=== PATIENT | male | born 1945 | race Caucasian/White ===

== ENCOUNTER → 2017-12-28 10:07 | Outpatient (CLI) | payer OTHER, SELFPAY | PROVIDERS: PCP Internal Medicine; Visit Provider Urology | DX: R97.20 Elevated prostate specific antigen [PSA] (principal) | CPT/HCPCS: 36415; 84153 ==

== ENCOUNTER → 2018-07-04 13:11 | Outpatient (CLI) | payer OTHER, SELFPAY ==
[2018-07-04 14:51] LABS: Prostate Specific Antigen 3.11 ng/mL (0.10-4.00)
== END ==
PROVIDERS: Family Provider Internal Medicine; PCP Internal Medicine; Visit Provider Urology
DX: R97.20 Elevated prostate specific antigen [PSA] (principal)
CPT/HCPCS: 36415; 84153

== ENCOUNTER → 2018-09-20 11:23 | Outpatient (CLI) | payer OTHER, SELFPAY ==
--- NOTE | 2018-09-20 | DI.MRI.S_ITS ---
PROCEDURE: MR BRAIN (IAC) WWO CON INDICATIONS: Benign paroxysmal vertigo, unspecified ear TECHNIQUE: Noncontrast sagittal T1 spin echo, axial FLAIR, axial gradient echo, axial diffusion and ADC through the brain. Axial thin-slice 3D CISS, coronal TruFISP, axial T1 spin echo with fat saturation through the internal auditory canals. After the administration of contrast, thin slice axial and coronal T1 spin echo with fat saturation through the internal auditory canals, and axial T1 spin echo with fat saturation through the brain. COMPARISON: None. FINDINGS: Image quality: Excellent. Cerebellopontine angles: No cerebellopontine angle masses. Inner ear structures appear normally formed. No suspicious enhancement in the internal auditory canal or along the course of the 7th cranial nerve. CSF spaces: Ventricles are normal in size and shape. There is mild, diffuse cerebral volume loss. There are mild periventricular and subcortical white matter chronic microvascular ischemic changes. No extra-axial fluid collections. Basal cisterns are patent. Brain: No intracranial bleeds or mass effects. Mccracken-white matter interface is intact. No abnormal intracranial enhancement. Diffusion weighted images demonstrate no acute ischemic insults. Brainstem appears normal. Normal intravascular flow voids are present. Skull and face: Calvarial marrow signal is normal. Orbits appear normal. Sinuses: Sinuses and mastoids are clear. IMPRESSION: 1. No acute intracranial disease process. 2. No evidence of vestibular schwannoma. 3. No abnormal intracranial mass or suspicious postcontrast enhancement. 4. Mild, diffuse cerebral volume loss. 5. Mild periventricular and subcortical white matter chronic microvascular ischemic changes. Dictated by: Lauren Cedillo MD, PhD on 09/20/2018 at 13:47 Approved by: Lauren Cedillo MD, PhD on 09/20/2018 at 13:49
== END ==
PROVIDERS: Family Provider Internal Medicine; PCP Internal Medicine; Visit Provider Internal Medicine
DX: H81.10 Benign paroxysmal vertigo, unspecified ear (principal)
CPT/HCPCS: 70553

== ENCOUNTER → 2018-12-28 10:06 | Outpatient (CLI) | payer OTHER, SELFPAY ==
[2018-12-28 11:42] LABS: Prostate Specific Antigen 3.42 ng/mL (0.10-4.00)
== END ==
PROVIDERS: Family Provider Internal Medicine; PCP Internal Medicine; Visit Provider Urology
DX: R97.20 Elevated prostate specific antigen [PSA] (principal)
CPT/HCPCS: 36415; 84153

== ENCOUNTER → 2020-01-26 10:37 | Outpatient (CLI) | payer OTHER, SELFPAY ==
[2020-01-26 13:26] LABS: Prostate Specific Antigen 4.62 ng/mL (0.10-4.00)
== END ==
PROVIDERS: Family Provider Internal Medicine; PCP Internal Medicine; Referring Provider Urology; Visit Provider Urology
DX: R97.20 Elevated prostate specific antigen [PSA] (principal)
CPT/HCPCS: 36415; 84153

== ENCOUNTER → 2021-02-19 11:02 | Outpatient (CLI) | payer OTHER, SELFPAY ==
[2021-02-20 09:40] LABS: PSA Free % 26.2 % (.); PSA, Total 5.3 ng/mL (0.0-4.0)
== END ==
PROVIDERS: Family Provider Internal Medicine; PCP Internal Medicine; Referring Provider Urology; Visit Provider Urology
DX: C61 Malignant neoplasm of prostate (principal)
CPT/HCPCS: 36415; 84153; 84154

== ENCOUNTER → 2022-03-18 10:11 | Outpatient (CLI) | payer OTHER, SELFPAY ==
--- NOTE | 2022-03-18 20:39 | DI.NM.S_ITS ---
DATE OF SERVICE: 03/18/2022 PROCEDURE: Exercise perfusion study. INDICATION: Chest pain with underlying hypertension. RADIOPHARMACEUTICAL: 24.6 millicurie technetium-99m Myoview IV was injected at stress and 12.7 millicurie technetium-99m Myoview IV was injected at rest. CARDIAC STRESS: The patient underwent exercise perfusion study under the supervision of an attending staff. The patient walked on Maged protocol for 7 minutes and achieved 103 percent of target heart rate. Resting blood pressure 122/84 mmHg. Peak blood pressure 200/90 mmHg. Baseline rhythm was sinus with nonspecific ST-T changes with ST flattening in inferolateral leads. During stress, no new convincing ischemic changes seen. The patient has some nonspecific ST-T changes in recovery. There were occasional PVCs. No complex arrhythmia. No chest pain. Had some shortness of breath. Achieved 10.1 METs of workload. CHRIS -21 percent. RAW DATA: There is increased subdiaphragmatic activity. GATED STUDY: Stress LV ejection fraction 68 percent without any obvious wall motion abnormalities. Resting end-diastolic volume 90 mL. TID ratio 0.91, which is within normal limits. Lung/heart ratio 0.25, which is within normal limits. MYOCARDIAL PERFUSION SCAN: Stress supine, resting supine and stress prone images were compared to each other. Stress supine and resting supine images revealed large size, moderately decreased perfusion of inferior wall extending into the inferoapex, as well as inferoseptum, which got completely resolved during stress prone images, suggestive of tissue attenuation artifact. No convincing ischemia or infarction pattern. CONCLUSION: This is a normal myocardial perfusion study with evidence of diaphragmatic tissue attenuation artifact, which got resolved during stress prone images. Good exercise tolerance. Peak exercise blood pressure 200/90. No chest pain. No complex arrhythmias. Preserved left ventricular function. Overall, low-risk myocardial perfusion scan. Attila Neil - Wong/tayler doc#: [id number]/job#: [id number] dd: 03/18/2022 17:10:00 dt: 03/18/2022 20:26:00 DICTATING MD/COPIES TO: Don Lawson MD COPIES MNE: ELI;
== END ==
PROVIDERS: Family Provider Internal Medicine; PCP Internal Medicine; Referring Provider Internal Medicine; Visit Provider Internal Medicine
DX: R07.9 Chest pain, unspecified (principal); I10 Essential (primary) hypertension
CPT/HCPCS: 78452; 93017; A9502

== ENCOUNTER → 2022-05-30 15:45 | Outpatient (CLI) | payer OTHER, SELFPAY ==
--- NOTE | 2022-05-30 15:47 | DI.MRI.S_ITS ---
PROCEDURE: MR HEAD/BRAIN WO CON INDICATIONS: Syncope and collapse TECHNIQUE: Non-contrast axial T1 spin echo, axial T2 fast spin echo, sagittal and axial FLAIR, coronal T2 fast spin echo, axial gradient echo, axial diffusion and ADC through the brain. COMPARISON: None. FINDINGS: Mild global cerebral volume loss with passive expansion of the ventricular system extra-axial spaces. No definite regional or lobar predilection to the volume loss. Vjsg-cu-iibigync chronic microvascular ischemic changes manifesting as numerous foci of increased T2/FLAIR signal intensity in the subcortical and periventricular white matter both cerebral hemispheres. No restricted diffusion. No unexpected intracranial susceptibility. No mass effect or midline shift. Orbital structures normal. Paranasal sinuses and mastoid air cells predominantly clear. IMPRESSION: No acute finding. Mild global cerebral volume loss and niww-al-hjounlta chronic microvascular ischemic changes. Dictated by: Rfaiq Torres M.D. on 05/30/2022 at 21:37 Approved by: Rafiq Torres M.D. on 05/30/2022 at 21:38
== END ==
PROVIDERS: Family Provider Internal Medicine; PCP Internal Medicine; Referring Provider Internal Medicine; Visit Provider Internal Medicine
DX: R55 Syncope and collapse (principal)
CPT/HCPCS: 70551

== ENCOUNTER 2023-03-29 12:19 | Day surgery (SDC) | payer OTHER, SELFPAY ==
[2023-03-29] MEDS: LACTATED RINGERS 1,000 ML 42 ML IV (12:43)
[2023-03-29 12:52] VITALS: BP 142/65; PULSE 62; RESP 18; TEMP 36.8; O2SAT 99; BMI 26.6
--- NOTE | 2023-03-29 13:34 | PM.HP.1 ---
History of Present Illness History of Present Illness Date Patient Seen: 03/29/23 Time Patient Seen: 13:34 Chief complaint: Colonoscopy w/poss bx Narrative: 77-year-old male with a reported history of unknown histology colon polyps. He believes his last colonoscopy was more than 10 years ago. Colonoscopy is pursued today. [facility] Social History household members: spouse Smoking Status: Never smoker alcohol intake: never Meds Home Medications and Allergies Home Medications Medication Instructions Recorded Confirmed Type Fluticasone Propionate (FLONASE) 2 spray intranasal HS #1 inh 05/04/12 03/29/23 Rx atorvastatin 10 mg tablet 10 mg PO DAILY 03/29/23 03/29/23 History tamsulosin 0.4 mg capsule 0.8 mg PO DAILY 03/29/23 03/29/23 History valsartan 160 mg tablet 160 mg PO DAILY 03/29/23 03/29/23 History Allergies Allergy/AdvReac Type Severity Reaction Status Date / Time No Known Drug Allergies Allergy Unknown Verified 03/29/23 12:49 aspirin AdvReac Mild GI UPSET Verified 03/29/23 12:49 Review of Systems Review of Systems ROS: Yes All systems reviewed with the patient and are negative except as otherwise documented Exam Vital Signs (past 8 hours): - 03/29/23 12:52 Temperature 98.2 F Pulse Rate 62 Respiratory Rate 18 Blood Pressure 142/65 H Pulse Oximetry 99 Oxygen Delivery Method Room Air Oxygen Delivery Method Room Air Const General: cooperative HENMT Head: normal to inspection Eyes General: appearance normal, both eyes and all related structures Neck Neck: normal visual inspection Chest Chest: normal inspection of the chest Resp Effort & Inspection: normal respiratory effort Cardio Rate: regular rate GI Inspection: normal to inspection Skin General: no rashes or lesions noted Neuro General: patient alert and patient awake Extrem General: normal to inspection and no pedal edema Psych Appearance: grossly normal Assessment & Plan Assessment & Plan narrative: 77-year-old male with a personal history of unknown histology colon polyps. Colonoscopy for screening purposes is pursued today.
--- NOTE | 2023-03-29 13:35 | PM.PREOP ---
Pre-operative Note Interval Note History & Physical reviewed/Exam performed by Physician: Yes Changes to H&P: No ASA Class (for procedural sedation): II
--- NOTE | 2023-03-29 14:34 | PM.OP.COLON ---
Operative Date/Time/Diagnoses Date of procedure: 03/29/23 Time of procedure: 14:34 Pre-op diagnosis: Personal history of unknown histology colon polyps. He reports for screening purposes. Post-op diagnosis: same Procedure & Clinicians Study performed: Colonoscopy Same procedure as scheduled: Yes Indications: Personal history of unknown histology colon polyps. He reports for screening purposes. Surgeon: Wyatt Galindo Procedure Notes SCOAP/Timeout: Done Procedure in detail: After the risks and benefits were explained, written and verbal informed consent was obtained. The patient was brought into the procedure room and placed into the left lateral decubitus position. Please see anesthesia note for sedation details. Digital rectal examination was accomplished. The scope was introduced into the patient and advanced under direct visualization to the cecum as identified by the appendiceal orifice and ileocecal valve. The scope was slowly withdrawn to carefully examine the mucosa for any defects or lesions. Comprehensive imaging was accomplished throughout the rectum including the dentate line. The colon was decompressed, the scope was then removed from the patient who tolerated the procedure well. Pediatric colonoscope Bowel prep adequate Scope withdrawal time: 10 minutes Sedation minutes: 20 Specimen(s): none sent Complications: none Impression: There were some scant diverticula in the left colon. The colon was mildly tortuous. No significant mucosal pathology was appreciated throughout. Prostate felt generous on digital rectal exam. Endoscopic diagnosis 1. Mild diverticulosis 2. Mildly tortuous colon 3. Enlarged prostate Post-procedure Plan for aftercare: 1. Await histology. 2. Follow up on prostate health in primary care. Disposition: PACU
[2023-03-29 14:35] VITALS: BP 112/63; PULSE 65; RESP 13; TEMP 36.9; O2SAT 99
[2023-03-29 14:40] VITALS: BP 114/63; PULSE 61; RESP 14; O2SAT 98
[2023-03-29 14:44] VITALS: BP 116/69; PULSE 59; RESP 14; TEMP 37; O2SAT 98
== END 2023-03-29 14:59 | disposition home or self-care (01) ==
PROVIDERS: Family Provider Internal Medicine; PCP Internal Medicine; Referring Provider Internal Medicine Gastroenterology; Visit Provider Internal Medicine Gastroenterology
PROC: 0DJD8ZZ Inspection of Lower Intestinal Tract, Via Natural or Artificial Opening Endoscopic (ICD-10-PCS; CPT 45378; principal; 2023-03-29 13:30)
DX: Z12.11 Encounter for screening for malignant neoplasm of colon (principal); Z86.010 Personal history of colon polyps; K57.30 Diverticulosis of large intestine without perforation or abscess without bleeding; N40.0 Benign prostatic hyperplasia without lower urinary tract symptoms
CPT/HCPCS: G0105; J2704

== ENCOUNTER → 2023-06-03 15:13 | Outpatient (CLI) | payer OTHER, SELFPAY ==
--- NOTE | 2023-06-03 | DI.RAD.S_ITS ---
PROCEDURE: XR LUMBAR SPINE 2-3V INDICATIONS: LOW BACK PAIN TECHNIQUE: 3 views of the lumbar spine were acquired. COMPARISON: None. FINDINGS: Bones: 5 ath-sjg-cnqzsym vertebrae are present. Minimal levocurvature of the lower lumbar spine. There is multilevel facet arthropathy, worse at L4-5 and L5-S1. Mild multilevel disc height loss with degenerative endplate changes and spurring is present. This is most pronounced at L4-5. No vertebral body compression fractures. No suspicious bony lesions. Soft tissues: Overlying bowel gas pattern is normal. No suspicious soft tissue calcifications. IMPRESSION: Multilevel degenerative changes of the lumbar spine, most pronounced at L4-5. Dictated by: Karri Winter M.D. on 06/03/2023 at 16:34 Approved by: Karri Winter M.D. on 06/03/2023 at 16:34
== END ==
PROVIDERS: Family Provider Internal Medicine; PCP Internal Medicine; Referring Provider Internal Medicine; Visit Provider Internal Medicine
DX: M47.816 Spondylosis without myelopathy or radiculopathy, lumbar region (principal); M47.817 Spondylosis without myelopathy or radiculopathy, lumbosacral region; M54.50 Low back pain, unspecified; G89.29 Other chronic pain
CPT/HCPCS: 72100

== ENCOUNTER 2025-03-20 10:45 | Outpatient (RCR) | payer MEDICARE, SELFPAY ==
--- NOTE | 2024-12-28 12:02 | PT.OPPOC ---
Physical, Occupational & Speech Therapy At [facility] Current Diagnoses Lumbago with sciatica, right side (12/28/24) Visit Care Team Role Provider Type Slim Koehler MD Primary Care Provider Physician Specialty: Internal Medicine Address: [address] [place] [address], [id number] Email: Jean Mccormack MD Family Provider Physician Specialty: Internal Medicine Address: [address] [place] [address], [id number] Email: [email or web address] AG Vicki Hassan MD Attending Provider Physician Referring Provider Specialty: Internal Medicine Address: [place], [address] Email: Plan Of Care PT OP: Lower Back/Lower Extremity Start: 12/28/24 11:32 Freq: Status: Active Protocol: Document 12/28/24 10:45 DCW (Rec: 12/28/24 12:02 DCW [id number]) Out-Patient Physical Therapy Visit Information Visit Information Visit Type Initial Evaluation Visit Start Time 10:45 Visit Stop Time 11:25 Visit Number 1 Number of SMASH PIECER Visits 0 Progress Note Due 01/27/25 Evaluation Information Evaluation Date 12/28/24 Current Condition History of Current Condition Onset Date Multi-year history Current Complaints Low back, right posterior hip pain History of Current Pt is an 79 year old male presenting with a long- Condition standing history of low back pain, pt estimates that it has been ongoing for approximately 25 years. Notes that it comes and goes, has recently been okay, but then beginning two years ago, has begun to worsen. Reports pain is present across his low back and into his right hip, but denies further radiating symptoms. Notes some mild ache when first getting up in the morning, but this loosens up, but as he moves around throughout the day, it does tend to worsen. Lifting things or bending over to work on tasks increase pain, NSAIDs or rest seem to help a bit. Prior Treatments and Lumbar X-ray: IMPRESSION: Multilevel degenerative Tests changes of the lumbar spine, most pronounced at L4-5. per Karri Winter M.D. on 06/03/2023 OP-PT Subjective Patient Comments Patient Comments It started 25 years ago, I was doing a lot of heavy work at that time, and it's flared up off and on since then. Patient Reported Worse Progress Patient Questionnaires Oswestry Low Back Index Oswestry Score 13/50 = 26% Manual Assessments Soft Tissue Assessment Soft Tissue Mobility Increased tone B lumbar paraspinals, piriformis Assessment Joint Mobility Assessment Joint Mobility Hypomobility of lumbar spine with P->A joint mobs Assessment Lumbar Spine Range of Motion Lumbar Spine Active Degrees Testing Position Standing Flexion 10 Extension 10 Lateral Flexion Left 54 Lateral Flexion 50 Right ROM Limitations Soft Tissue Tightness,Bony Restriction,Muscle Tone,Pain Comments Lateral flexion measured in cm from fingertips to floor Special Tests Lumbar Spine Special Tests BAO Test Results Negative Compression Test Results Negative Straight Leg Raise Test Results Negative Slump Test Results Negative A-P Shearing Test Results Negative Hip Strength Hip Manual Muscle Testing Right Flexion (L2) 4 Good Abduction 4- Good- Adduction 4- Good- External Rotation 4+ Good+ Internal Rotation 4+ Good+ Left Flexion (L2) 4- Good- Abduction 4- Good- Adduction 4- Good- External Rotation 4+ Good+ Internal Rotation 4+ Good+ Knee Strength Knee Manual Muscle Testing Right Flexion (S2) 4+ Good+ Extension (L3) 4 Good Left Flexion (S2) 4+ Good+ Extension (L3) 4 Good Therapeutic Exercises Sitting Exercises Piriformis Sitting Exercise Piriformis stretch - seated Figure-4 Name Physical Therapy Assessment Rehab Potential Rehabilitation Good Potential Evaluation Complexity Number of Personal 3 or More Factors/ Comorbidities Number of Body 4 or More Systems Impaired Clinical Evolving Presentation at Evaluation Impairments Impairments Activity Tolerance,Functional Activities,Functional Mobility,Pain,ROM,Soft Tissue Mobility,Strength,Tone Goals Two Impairment Pt displays limited lumbar AROM, flexion 40?, extension 10? Alf Goal (LTG) Pt to demonstrate improvement in lumbar flexion to >60? 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 Pt exhibits limited lumbar ROM, hypomobility, and increased muscle tone suggestive of osteoarthritis and degenerative changes. Will likely benefit from skilled therapy focusing on hip/core strengthening, lumbar mobility, tone management, and pain control techniques. At today's evaluation, pt did not appear to exhibit any red flags or concerning signs of neuro involvement. No positive special testing. Physical Therapy Plan Frequency and Duration Frequency of 2x/Week Treatment Plan of Care Start 12/28/24 Date Plan of Care End 03/28/25 Date Therapeutic Interventions Therapeutic Home Exercise Program,Joint Mobilizations,Manual Interventions Therapy,Neuromuscular Re-education,Patient/Caregiver Education,Self-Care/Home Management,Soft Tissue Mobilization,Therapeutic Activities,Therapeutic Exercises Modalities Cold Pack/Ice Massage,Electric Stimulation,Hot Packs, Ultrasound Next Visit Focus/Plan Next Note Type Treatment Note Next Visit Plan Hip/core strengthening, STM, lumbar joint mobs Plan of Care Dates Plan of Care Start Date 12/28/24 Plan of Care End Date 03/28/25 Electronically Signed by: Salvador Cage, PT 12/28/24 0672 If you are in agreement with this Plan of Care, please return a signed and dated copy. I have reviewed this Plan of Care and certify that the skilled therapy services above are required to meet the patient?s needs. Physician Signature Date Printed Name and Credentials Clinical Instructor Signature Printed Name and Credentials
--- NOTE | 2025-02-19 12:15 | PT.OPPN ---
Current Diagnoses Lumbago with sciatica, right side (02/22/25) Physical Therapy Progress Note PT OP: Lower Back/Lower Extremity Start: 12/28/24 11:32 Freq: Status: Active Protocol: Document 03/01/25 11:08 DCW (Rec: 02/19/25 12:18 DCW [id number]) Out-Patient Physical Therapy Visit Information Visit Information Visit Type Progress Note Visit Start Time 11:30 Visit Stop Time 12:15 Visit Number 2 Number of DEPORTATION OFFICER Visits 0 Progress Note Due 03/21/25 Evaluation Information Evaluation Date 12/28/24 OP-PT Subjective Patient Comments Patient Comments My back is chronic, constant, typically okay throughout the day, gets worse as it gets later in the day and I start to get tired. It's also right here in my R hip, but then just vague ache in my low back. Therapeutic Exercises Supine Exercises Air Bike Supine Exercise Name PPT /c Air Bicycle Comments HEP SLR Supine Exercise Name PPT /c PPT Comments HEP Marching Supine Exercise Name PPT /c Marching Comments HEP PPT /c TrA Supine Exercise Name PPT /c TrA Comments HEP Sitting Exercises Piriformis Sitting Exercise Piriformis stretch - seated Figure-4 Name Comments HEP Standing Exercises Pallof Press Standing Exercise Pallof Press Name Side bilateral Resistance Blue Comments HEP Other Exercises Resisted Ambulation Other Exercise Name Resisted side-stepping Resistance Green loop Manual Therapy Treatment Soft Tissue Mobilization Lumbar Body Location L lumbar paraspinals, piriformis, iliac crest Mobilization Type Strumming,Sustained Pressure,Trigger Point Release Intensity/Depth Moderate Body Position Sidelying Physical Therapy Assessment Impairments Impairments Activity Tolerance,Functional Activities,Functional Mobility,Pain,ROM,Soft Tissue Mobility,Strength,Tone Goals Two Impairment Pt displays limited lumbar AROM, flexion 40?, extension 10? Care Home Goal (LTG) Pt to demonstrate improvement in lumbar flexion to >60? 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 Feels good with his current HEP, has been fairly compliant. Noted some hip fatigue with resisted ambulation. Next visit, review HEP, continue STM, trial lumbar mobs if necessary. Physical Therapy Plan Frequency and Duration Frequency of 2x/Week Treatment Plan of Care Start 12/28/24 Date Plan of Care End 03/28/25 Date Therapeutic Interventions Therapeutic Home Exercise Program,Joint Mobilizations,Manual Interventions Therapy,Neuromuscular Re-education,Patient/Caregiver Education,Self-Care/Home Management,Soft Tissue Mobilization,Therapeutic Activities,Therapeutic Exercises Modalities Cold Pack/Ice Massage,Electric Stimulation,Hot Packs, Ultrasound Next Visit Focus/Plan Next Note Type Treatment Note Next Visit Plan Hip/core strengthening, STM, lumbar joint mobs
--- NOTE | 2025-02-19 12:18 | PT.OTN ---
Current Diagnoses Lumbago with sciatica, right side (02/19/25) Physical Therapy Treatment Note PT OP: Lower Back/Lower Extremity Start: 12/28/24 11:32 Freq: Status: Active Protocol: Document 02/19/25 11:30 DCW (Rec: 02/19/25 12:18 DCW [id number]) Out-Patient Physical Therapy Visit Information Visit Information Visit Type Progress Note Visit Start Time 11:30 Visit Stop Time 12:15 Visit Number 2 Number of CLINICAL LABORATORY AIDE Visits 0 Progress Note Due 01/27/25 Evaluation Information Evaluation Date 12/28/24 OP-PT Subjective Patient Comments Patient Comments My back is chronic, constant, typically okay throughout the day, gets worse as it gets later in the day and I start to get tired. It's also right here in my R hip, but then just vague ache in my low back. Therapeutic Exercises Supine Exercises Air Bike Supine Exercise Name PPT /c Air Bicycle Comments HEP SLR Supine Exercise Name PPT /c PPT Comments HEP Marching Supine Exercise Name PPT /c Marching Comments HEP PPT /c TrA Supine Exercise Name PPT /c TrA Comments HEP Sitting Exercises Piriformis Sitting Exercise Piriformis stretch - seated Figure-4 Name Comments HEP Standing Exercises Pallof Press Standing Exercise Pallof Press Name Side bilateral Resistance Blue Comments HEP Other Exercises Resisted Ambulation Other Exercise Name Resisted side-stepping Resistance Green loop Manual Therapy Treatment Soft Tissue Mobilization Lumbar Body Location L lumbar paraspinals, piriformis, iliac crest Mobilization Type Strumming,Sustained Pressure,Trigger Point Release Intensity/Depth Moderate Body Position Sidelying Physical Therapy Assessment Impairments Impairments Activity Tolerance,Functional Activities,Functional Mobility,Pain,ROM,Soft Tissue Mobility,Strength,Tone Goals Two Impairment Pt displays limited lumbar AROM, flexion 40?, extension 10? Long-Term Goal (LTG) Pt to demonstrate improvement in lumbar flexion to >60? 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 Noted some hip fatigue with resisted ambulation. Next visit, review HEP, continue STM, trial lumbar mobs if necessary. Physical Therapy Plan Frequency and Duration Frequency of 2x/Week Treatment Plan of Care Start 12/28/24 Plan of Care End 03/28/25 Date Therapeutic Interventions Therapeutic Home Exercise Program,Joint Mobilizations,Manual Interventions Therapy,Neuromuscular Re-education,Patient/Caregiver Education,Self-Care/Home Management,Soft Tissue Mobilization,Therapeutic Activities,Therapeutic Exercises Modalities Cold Pack/Ice Massage,Electric Stimulation,Hot Packs, Ultrasound Next Visit Focus/Plan Next Note Type Treatment Note Next Visit Plan Hip/core strengthening, STM, lumbar joint mobs
--- NOTE | 2025-02-22 13:50 | PT.OTN ---
Current Diagnoses Lumbago with sciatica, right side (02/22/25) Physical Therapy Treatment Note PT OP: Lower Back/Lower Extremity Start: 12/28/24 11:32 Freq: Status: Active Protocol: Document 02/22/25 13:00 SP (Rec: 02/22/25 13:50 SP [id number]) Out-Patient Physical Therapy Visit Information Visit Information Visit Type Treatment Note Visit Start Time 13:00 Visit Stop Time 13:50 Visit Number 3 Number of BLOCK OUT MACHINE OPERATOR Visits 1 Progress Note Due 01/27/25 OP-PT Subjective Patient Comments Patient Comments Pt reports was sore after last tx. Is compliant with HEP. He states R low back still sore since last tx activity. Therapeutic Exercises Supine Exercises Stretching Supine Exercise Name 1. piriformis 2. Fig 4 (ft at inner thigh)3. Modified Juan Ramon Stretches Side right Equipment Used added to HEP with HO Reps/Minutes 60 sec each Comments cued set up and proper form, slight LB toward table as needed Air Bike Supine Exercise Name PPT /c Air Bicycle Reps/Minutes 20 reps Comments cued higher bicycle Marching Supine Exercise Name PPT /c Marching-easy Side bilateral Resistance AROM Reps/Minutes 20 reps easy Comments HEP Standing Exercises Resisted Shoulder Extension Standing Exercise added to HEP with HO Name Side bilateral Resistance Blue TB #5 Reps/Minutes 10 reps Pallof Press Standing Exercise HEP Pallof Press Name Side bilateral Resistance Blue TB #5 Reps/Minutes 15 reps each direction Comments cued upright posture and core fac Manual Therapy Treatment Consent Patient gave verbal Yes consent for manual treatment Soft Tissue Mobilization Lumbar Body Location R lumbar paraspinals, piriformis, Glut med at iliac crest & femur Mobilization Type Rolling,Sustained Pressure,Other Intensity/Depth Moderate Body Position Sidelying Comments Gentle STMs with feedback on pressure, MWM with hip ER Joint Mobilizations R hip Joint lateral & inferolateral glide with strap Comments good response decreased deep R hip tightness LS Direction II gentle inferior distraction Comments didn't seem to do kyrie with strap posterior thighs, so provided long axis pull Physical Therapy Assessment Goals Two Impairment Pt displays limited lumbar AROM, flexion 40?, extension 10? [facility] Goal (LTG) Pt to demonstrate improvement in lumbar flexion to >60? 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 Instructed stretching HEP and cotninue core and back strengthening progress, cues for proper form and upright posture. Physical Therapy Plan Frequency and Duration Frequency of 2x/Week Treatment Plan of Care Start 12/28/24 Date Plan of Care End 03/28/25 Date Therapeutic Interventions Therapeutic Home Exercise Program,Joint Mobilizations,Manual Interventions Therapy,Neuromuscular Re-education,Patient/Caregiver Education,Self-Care/Home Management,Soft Tissue Mobilization,Therapeutic Activities,Therapeutic Exercises Modalities Cold Pack/Ice Massage,Electric Stimulation,Hot Packs, Ultrasound Next Visit Focus/Plan Next Note Type PRogress Note Next Visit Plan recheck HEP, PN with PT next tx Hip/core strengthening, STM, lumbar joint mobs
--- NOTE | 2025-03-01 12:17 | PT.OTN ---
Current Diagnoses Lumbago with sciatica, right side (03/01/25) Physical Therapy Treatment Note PT OP: Lower Back/Lower Extremity Start: 12/28/24 11:32 Freq: Status: Active Protocol: Document 03/01/25 11:35 SP (Rec: 03/01/25 12:25 SP [id number]) Out-Patient Physical Therapy Visit Information Visit Information Visit Type Treatment Note Visit Start Time 11:35 Visit Stop Time 12:17 Visit Number 4 Number of SILK SCREEN CUTTER Visits 2 Progress Note Due 03/22/25 OP-PT Subjective Patient Comments Patient Comments Pt reports was sore after last tx. Is compliant with HEP. He states R low back still sore since last tx activity. Pt states has had US in his past PT and helped his low back feel better, wants to trial today. Therapeutic Exercises Supine Exercises LTR Supine Exercise Name trialed in PT Side bilateral Reps/Minutes 10 reps each side Comments after US Stretching Supine Exercise Name 1. piriformis 2. Fig 4 (ft at inner thigh)3. Modified Juan Ramon Stretches Side right Resistance 1. R ft over L knee, cradle knee toward L shld 2. L leg straight Equipment Used reviewed Reps/Minutes 60 sec each x2 Comments cued set up, proper form HO, slight LB toward table as needed, slow breath Air Bike Supine Exercise Name PPT /c Air Bicycle Reps/Minutes 20 reps Comments cued higher bicycle SLR Supine Exercise Name PPT /c PPT- HEP Side bilateral Reps/Minutes 15 reps Comments cued TKE and DF neutral, low back toward table Standing Exercises Resisted Shoulder Extension Standing Exercise reviewed Name Side bilateral Resistance Blue TB #5 (latex) Reps/Minutes 10 reps Comments cued elbows fairly straight, pull arms back at side Pallof Press Standing Exercise reviewed Pallof Press Name Side bilateral Resistance Blue TB #5 Reps/Minutes 15 reps each direction Comments cued upright posture and core fac press out against good resistance Ultrasound Therapy Treatment R hip and LB Patient Position Prone Coupling Medium Ultrasound Gel Applicator Size (cm2 2 ) Frequency Setting ( 1 mHz) Mode Setting Continuous Intensity Setting (w 1.2 /cm2) Comments decreased R LB and upper hip discomfort tightness. Physical Therapy Assessment Goals Two Impairment Pt displays limited lumbar AROM, flexion 40?, extension 10? Shelter Goal (LTG) Pt to demonstrate improvement in lumbar flexion to >60? 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 Occasional cues for keeping head up and postural alignment corrections. Pt reports R hip feels alot better after US and therex. Physical Therapy Plan Frequency and Duration Frequency of 2x/Week Treatment Plan of Care Start 12/28/24 Date Plan of Care End 03/28/25 Date Therapeutic Interventions Therapeutic Home Exercise Program,Joint Mobilizations,Manual Interventions Therapy,Neuromuscular Re-education,Patient/Caregiver Education,Self-Care/Home Management,Soft Tissue Mobilization,Therapeutic Activities,Therapeutic Exercises Modalities Cold Pack/Ice Massage,Electric Stimulation,Hot Packs, Ultrasound Next Visit Focus/Plan Next Note Type Treatment Note Next Visit Plan recheck HEP, may need HOs to view and encouragement of HEP performance. POC: Hip/core strengthening, STM, lumbar joint mobs
--- NOTE | 2025-03-05 12:13 | PT.OTN ---
Current Diagnoses Lumbago with sciatica, right side (03/05/25) Physical Therapy Treatment Note PT OP: Lower Back/Lower Extremity Start: 12/28/24 11:32 Freq: Status: Active Protocol: Document 03/05/25 11:30 DCW (Rec: 03/05/25 12:13 DCW [id number]) Out-Patient Physical Therapy Visit Information Visit Information Visit Type Treatment Note Visit Start Time 11:30 Visit Stop Time 12:15 Visit Number 5 Number of CURRICULUM AND ASSESSMENT DIRECTOR Visits 0 Progress Note Due 03/22/25 Evaluation Information Evaluation Date 12/28/24 OP-PT Subjective Patient Comments Patient Comments Feeling better. I was actually doing some of the exercises you had given me, and it seems to be helping. Notes he still feels like there is a lot of tightness in his right posterior hip Gym Equipment Therapeutic Ball LTR Exercise Details LTR Ball Size/Color Red - 55 cm Therapeutic Exercises Sidelying Exercises Reverse Clamshell Sidelying Exercise Reverse Clamshell Name Side bilateral Comments HEP Clamshell Sidelying Exercise Clamshell Name Side bilateral Comments HEP Other Exercises Resisted Ambulation Other Exercise Name Resisted side-stepping Resistance Green loop Manual Therapy Treatment Soft Tissue Mobilization Lumbar Body Location R lumbar paraspinals, piriformis, Glut med at iliac crest & femur Mobilization Type Rolling,Sustained Pressure,Other Intensity/Depth Moderate Body Position Sidelying Comments Gentle STMs with feedback on pressure Physical Therapy Assessment Impairments Impairments Activity Tolerance,Functional Activities,Functional Mobility,Pain,ROM,Soft Tissue Mobility,Strength,Tone Goals Two Impairment Pt displays limited lumbar AROM, flexion 40?, extension 10? Senior Care Goal (LTG) Pt to demonstrate improvement in lumbar flexion to >60? 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 Pt doing better recently with HEP, feels like he is making some good improvement. Continue with stretch, strengthening, and improving functional mobility. Physical Therapy Plan Frequency and Duration Frequency of 2x/Week Treatment Plan of Care Start 12/28/24 Date Plan of Care End 03/28/25 Date Therapeutic Interventions Therapeutic Home Exercise Program,Joint Mobilizations,Manual Interventions Therapy,Neuromuscular Re-education,Patient/Caregiver Education,Self-Care/Home Management,Soft Tissue Mobilization,Therapeutic Activities,Therapeutic Exercises Modalities Cold Pack/Ice Massage,Electric Stimulation,Hot Packs, Ultrasound Next Visit Focus/Plan Next Note Type Treatment Note Next Visit Plan recheck HEP, may need HOs to view and encouragement of HEP performance. POC: Hip/core strengthening, STM, lumbar joint mobs
--- NOTE | 2025-03-15 17:51 | PT.OTN ---
Current Diagnoses Lumbago with sciatica, right side (03/15/25) Physical Therapy Treatment Note PT OP: Lower Back/Lower Extremity Start: 12/28/24 11:32 Freq: Status: Active Protocol: Document 03/15/25 17:00 DCW (Rec: 03/15/25 17:51 DCW [id number]) Out-Patient Physical Therapy Visit Information Visit Information Visit Type Treatment Note Visit Start Time 17:00 Visit Stop Time 17:45 Visit Number 6 Number of HOSPITAL DIRECTOR Visits 0 Progress Note Due 03/22/25 Evaluation Information Evaluation Date 12/28/24 OP-PT Subjective Patient Comments Patient Comments Pt reports he does feel better after doing his exercises, but still feels fairly consistently tightness, especially in his right posterior hip. Therapeutic Exercises Supine Exercises Stretching Supine Exercise Name Figure-4, Knee to opposite shoulder Side right Sidelying Exercises Open Book Sidelying Exercise Open Book Name Side bilateral Standing Exercises ER/IR Standing Exercise Resisted hip ER/IR - half kneel on stool Name Side bilateral Resistance Lv 2 Other Exercises Resisted Ambulation Other Exercise Name Resisted side-stepping, forward, backward Resistance Green loop Manual Therapy Treatment Soft Tissue Mobilization Lumbar Body Location R lumbar paraspinals, piriformis, Glut med at iliac crest & femur Mobilization Type Rolling,Sustained Pressure,Other Intensity/Depth Moderate Body Position Sidelying Comments Gentle STMs with feedback on pressure Physical Therapy Assessment Impairments Impairments Activity Tolerance,Functional Activities,Functional Mobility,Pain,ROM,Soft Tissue Mobility,Strength,Tone Goals Two Impairment Pt displays limited lumbar AROM, flexion 40?, extension 10? Fpc Goal (LTG) Pt to demonstrate improvement in lumbar flexion to >60? 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 Is still feeling like there is tightness in posterior hip, but improves with activity. Physical Therapy Plan Frequency and Duration Frequency of 2x/Week Treatment Plan of Care Start 12/28/24 Date Plan of Care End 03/28/25 Date Therapeutic Interventions Therapeutic Home Exercise Program,Joint Mobilizations,Manual Interventions Therapy,Neuromuscular Re-education,Patient/Caregiver Education,Self-Care/Home Management,Soft Tissue Mobilization,Therapeutic Activities,Therapeutic Exercises Modalities Cold Pack/Ice Massage,Electric Stimulation,Hot Packs, Ultrasound Next Visit Focus/Plan Next Note Type Treatment Note Next Visit Plan recheck HEP, may need HOs to view and encouragement of HEP performance. POC: Hip/core strengthening, STM, lumbar joint mobs
--- NOTE | 2025-03-20 11:28 | PT.OPDS ---
Current Diagnoses Lumbago with sciatica, right side (03/20/25) Visit Care Team Role Provider Type Slim Koehler MD Primary Care Provider Physician Specialty: Internal Medicine Address: [facility] [place], [address] Email: Jean Mccormack MD Family Provider Physician Specialty: Internal Medicine Address: [address] [place] [address], [id number] Email: [email or web address] Vicki Hassan MD Attending Provider Physician Referring Provider Specialty: Internal Medicine Address: [address] [place] [address], [facility], [place], [address] Email: Visit Number Visit Number 7 Discharge Summary PT OP: Lower Back/Lower Extremity Start: 12/28/24 11:32 Freq: Status: Active Protocol: Document 03/20/25 10:45 DCW (Rec: 03/20/25 11:28 DCW [id number]) Out-Patient Physical Therapy Visit Information Visit Information Visit Type Discharge Summary Visit Start Time 10:45 Visit Stop Time 11:30 Visit Number 7 Number of SEPTIC TANK INSTALLER Visits 0 Progress Note Due 03/22/25 Evaluation Information Evaluation Date 12/28/24 OP-PT Subjective Patient Comments Patient Comments I don't think I'll ever be cured at this point, I'll always be carrying some aches and pains at my age. Pt feels fairly comfortable with his current level of function, feels comfortable with HEP, no questions at this time. Lumbar Spine Range of Motion Lumbar Spine Active Degrees Testing Position Standing Flexion 45 Extension 20 Lateral Flexion Left 50 Lateral Flexion 50 Right ROM Limitations Soft Tissue Tightness,Bony Restriction,Muscle Tone,Pain Comments Lateral flexion measured in cm from fingertips to floor Gym Equipment Therapeutic Ball Pelvic Tilts Exercise Details Pelvic tilts/circles Ball Size/Color Green - 65 cm Body Position Sitting Therapeutic Exercises Supine Exercises Stretching Supine Exercise Name Figure-4, Knee to opposite shoulder Side bilateral Other Exercises Resisted Ambulation Other Exercise Name Resisted side-stepping, forward, backward Resistance Green loop Physical Therapy Assessment Goals Two Impairment Pt displays limited lumbar AROM, flexion 10?, extension 10? Custodial Goal (LTG) Pt to demonstrate improvement in lumbar flexion to >60? 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 Pt appropriate for discharge at this time. Physical Therapy Plan Frequency and Duration Frequency of 2x/Week Treatment Plan of Care Start 12/28/24 Date Plan of Care End 03/28/25 Date Therapeutic Interventions Therapeutic Home Exercise Program,Joint Mobilizations,Manual Interventions Therapy,Neuromuscular Re-education,Patient/Caregiver Education,Self-Care/Home Management,Soft Tissue Mobilization,Therapeutic Activities,Therapeutic Exercises Modalities Cold Pack/Ice Massage,Electric Stimulation,Hot Packs, Ultrasound Discharge Physical Therapy Discharge Comments Discharge to independent HEP Next Visit Focus/Plan Next Note Type Discharge Summary
== END 2025-03-20 13:18 | disposition home or self-care (01) ==
LOC: PHYS 10:45
PROVIDERS: Family Provider Internal Medicine; PCP Internal Medicine; Referring Provider Internal Medicine; Visit Provider Internal Medicine
DX: M54.41 Lumbago with sciatica, right side (principal)
CPT/HCPCS: 97035; 97110; 97140; 97162